=== PATIENT | female | born 1950 | race Caucasian/White ===

== ENCOUNTER 2023-01-20 07:41 | Outpatient (AMB) | payer OTHER, MEDICAID, SELFPAY ==
--- NOTE | 2023-01-20 07:47 | MHC.OFFVIS ---
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 Accompanied by her lupe Anjelica Preschool Program Director Required: Yes Preschool Program Director Name: Natasha Allergies cephalexin Allergy (Unknown, Verified 01/20/23 07:50) Rash nitrofurantoin Allergy (Unknown, Verified 01/20/23 07:50) Rash penicillin V Allergy (Unknown, Verified 01/20/23 07:50) Rash vancomycin Allergy (Unknown, Verified 01/20/23 07:50) Rash IVP dye(iodine containing) Allergy (Unknown, Uncoded 01/20/23 07:50) Rash HPI HPI Comments History of Present Illness Details 72 y/o female patient presents with her daughter for new in-person visit for laryngeal tremor. Pt's daughter helped for hx and interpretation. Pt's daughter noticed that patient's voice changes about an year ago. Her voice has been hoarse and having cough when she talks. Denies neck or chest trauma, or viral illness. Pt reports she has hx of thyroid nodule. She was evaluted by ENT and referred to r/o neurological condition. Denies difficulty swallowing, She can cough when she talks long. Pt was recommended to use flonase for post nasal drip. Pt also referred to speech therapy. Denies family hx of tremor. Denies slowing, or stiffness. Had knee pain but no gait changes. She sleeps ok, no REM behavior. Jose Luis memory changes. Denies constipation. [facility] Surgical History (Updated 01/20/23 @ 07:53 by Harini Burris CMA) S/P emergency Family History (Updated 01/20/23 @ 07:55 by Harini Burris CMA) Family/Other Cancer Family/Other Asthma Diabetes Heart murmur Social History (Updated 01/20/23 @ 07:55 by Harini Burris CMA) Alcohol intake: never Patient Tobacco Use Status: Never used Tobacco Review of Systems Const All systems reviewed & are unremarkable except as noted in HPI and below Physical Exam Vital Signs: Last Vital Signs Pulse 62 01/20/23 07:55 BP 138/68 01/20/23 07:55 Pulse Ox 98 01/20/23 07:55 Oxygen Delivery Method Room Air 01/20/23 07:55 BMI result Body Mass Index 33.5 Const Other: Mild jaw tremor. No tongue tremor General: cooperative and healthy appearing Nutritional Appearance: obese Orientation/consciousness: patient oriented x3 Limitations: language barrier Neck Neck: Yes full ROM and Yes supple Resp Effort & Inspection: normal respiratory effort and able to speak in complete sentences Neuro General: patient oriented x3 Cranial nerves: Yes CN's II-XII intact bilaterally Motor exam (neuro): 5/5 motor strength present throughout, Pronator motor function not present and no tremor noted Deep tendon reflexes (DTR's): Rt Biceps (C5, C6): 2+ and Left biceps reflex intensity grade: 2+ Psych Appearance: grossly normal Mental Status: mental status grossly normal Speech and movement: Other speech and movement exam findings present (Psych) (voice tremor) Attitude: cooperative Assessment & Plan Assessment & Plan (1) Voice hoarseness: Code(s): R49.0 - Dysphonia (2) Voice tremor: Code(s): R49.8 - Other voice and resonance disorders Plan Advised patient to try propranolol ER 60 mg qHS. Monitor her blood pressure. Follow up with speech therapy. Medications: New propranolol ER 60 mg PO BEDTIME 30 caps 1RF 30 days Coding Level of Care Code New Pt Level 4 (99040) Diagnoses Voice hoarseness R49.0 Voice tremor R49.8
[2023-01-20 07:55] VITALS: BP 138/68; PULSE 62; O2SAT 98; BMI 33.5
== END 2023-01-20 08:29 | disposition home or self-care (01) ==
PROVIDERS: PCP Internal Medicine; Visit Provider Nurse Practitioner Family
DX: R49.0 Dysphonia (principal); R49.8 Other voice and resonance disorders
CPT/HCPCS: 99204

== ENCOUNTER → 2023-01-20 07:41 | Outpatient (BNVA) | payer OTHER, MEDICAID, SELFPAY | PROVIDERS: PCP Internal Medicine; Visit Provider Nurse Practitioner Family ==

== ENCOUNTER 2023-06-04 08:24 | Outpatient (AMB) | payer OTHER, MEDICAID, SELFPAY ==
--- NOTE | 2023-06-04 08:28 | MHC.OFFVIS ---
Vital Signs 06/04/23 08:37 Height 5 ft 3 in Weight 186 lb 8 oz BMI 33.0 BP 120/72 Blood Pressure Location Rt brachial Position Sitting Pulse 60 Pulse Source Pulse Oximeter Pulse Oximetry (%) 98 Oxygen Delivery Method Room Air Intake Visit Reasons: 3 mo f/u - Laryngeal & Palatal Tremors Intake Note: Patient presents for 3 month F/U. While speaking her voice becomes hoarse and coughs a lot. Voice trembles a lot and she looses it at times. Allergies cephalexin Allergy (Unknown, Verified 06/04/23 08:37) Rash nitrofurantoin Allergy (Unknown, Verified 06/04/23 08:37) Rash penicillin V Allergy (Unknown, Verified 06/04/23 08:37) Rash vancomycin Allergy (Unknown, Verified 06/04/23 08:37) Rash IVP dye(iodine containing) Allergy (Unknown, Uncoded 01/20/23 07:50) Rash HPI Comments Details: 72 y/o female patient presents with her daughter for follow up of laryngeal tremor. Pt's daughter helped for hx and interpretation. Pt tried propranolol 60 ER daily, but it caused her GI upset, nausea, vomiting and diarrhea. Propranolol dosage changed to 10 mg BID and she tried for a month. She is not sure it helps to reduce the voice tremor. She did not get refill and stopped it. Pt reports she has hx of thyroid nodule. She was evaluted by ENT and referred to r/o neurological condition. Denies difficulty swallowing, She can cough when she talks long. Pt was recommended to use flonase for post nasal drip. Pt also referred to speech therapy. Denies family hx of tremor. Denies slowing, or stiffness. Had knee pain but no gait changes. She sleeps ok, no REM behavior. Jose Luis memory changes. Denies constipation. [facility] Surgical History S/P emergency Family History Family/Other Cancer Family/Other Asthma Diabetes Heart murmur Social History Alcohol intake: never Patient Tobacco Use Status: Never used Tobacco Review of Systems Const All systems reviewed & are unremarkable except as noted in HPI and below Physical Exam Vital Signs: Last Vital Signs Pulse 60 06/04/23 08:37 BP 120/72 06/04/23 08:37 Pulse Ox 98 06/04/23 08:37 Oxygen Delivery Method Room Air 06/04/23 08:37 BMI result Body Mass Index 33.0 Const Other: Mild jaw tremor. No tongue tremor General: cooperative and healthy appearing Nutritional Appearance: obese Orientation/consciousness: patient oriented x3 Limitations: language barrier Neck Neck: Yes full ROM and Yes supple Resp Effort & Inspection: normal respiratory effort and able to speak in complete sentences Neuro General: patient oriented x3 Cranial nerves: Yes CN's II-XII intact bilaterally Motor exam (neuro): 5/5 motor strength present throughout, Pronator motor function not present and no tremor noted Deep tendon reflexes (DTR's): Rt Biceps (C5, C6): 2+ and Left biceps reflex intensity grade: 2+ Psych Appearance: grossly normal Mental Status: mental status grossly normal Speech and movement: Other speech and movement exam findings present (Psych) (voice tremor) Attitude: cooperative Assessment & Plan Assessment & Plan (1) Voice hoarseness: Code(s): R49.0 - Dysphonia Category: Medical (2) Voice tremor: Code(s): R49.8 - Other voice and resonance disorders Category: Medical Plan Advised patient to resume propranolol 10 mg BID. Monitor her blood pressure. Follow up with speech therapy. Medications: Refilled propranolol 10 mg PO BID 180 tabs 1RF 90 days Coding Level of Care Code Est Pt Level 3 (37296) Diagnoses Voice hoarseness R49.0 Voice tremor R49.8
[2023-06-04 08:37] VITALS: BP 120/72; PULSE 60; O2SAT 98; BMI 33.0
== END 2023-06-04 08:56 | disposition home or self-care (01) ==
PROVIDERS: PCP Internal Medicine; Visit Provider Nurse Practitioner Family
DX: R49.0 Dysphonia (principal); R49.8 Other voice and resonance disorders
CPT/HCPCS: 99213

== ENCOUNTER → 2023-06-04 08:24 | Outpatient (BNVA) | payer OTHER, MEDICAID, SELFPAY | PROVIDERS: PCP Internal Medicine; Visit Provider Nurse Practitioner Family ==

== ENCOUNTER 2023-11-07 10:09 | Outpatient (AMB) | payer OTHER, SELFPAY ==
--- NOTE | 2023-11-07 10:16 | MHC.OFFVIS ---
Vital Signs 11/07/23 10:17 Height 5 ft 3 in Weight 186 lb BMI 32.9 BP 128/74 Blood Pressure Location Lt brachial Position Sitting Respiration 16 Pulse 57 Pulse Source Pulse Oximeter Pulse Oximetry (%) 97 Oxygen Delivery Method Room Air Intake Visit Reasons: Follow up Laryngeal/Palatal Tremors Intake Note: Pt presents for a 5 month follow up for laryngeal tremors. Pt reports she went to initial visit for speech therapy and never went back. Gear Setter Required: No Allergies cephalexin Allergy (Unknown, Verified 11/07/23 10:17) Rash nitrofurantoin Allergy (Unknown, Verified 11/07/23 10:17) Rash penicillin V Allergy (Unknown, Verified 11/07/23 10:17) Rash vancomycin Allergy (Unknown, Verified 11/07/23 10:17) Rash IVP dye(iodine containing) Allergy (Unknown, Uncoded 11/07/23 10:17) Rash Medication List - Last Reconciled 11/07/23 by Tiffani Camargo MD amlodipine 5 mg PO DAILY cholecalciferol (vitamin D3) 50 mcg PO DAILY diclofenac sodium 1% topical fluticasone propionate 50 mcg/actuation 1 spray intranasal DAILY ketotifen fumarate 0.025%(0.035%) 1 drp ophthalmic (eye) BID levothyroxine 100 mcg PO DAILY pravastatin 40 mg PO BEDTIME propranolol 10 mg PO BID 90 days HPI Comments Details: 72 y/o female patient presents with her daughter for follow up of laryngeal tremor. Pt's daughter helped for hx and interpretation.She did not notice any improvement with propranolol 10mg bid she is fine talking but when she sings - she loses her voice like dysphonia. she feels like her vocal cords tightens up. she also has snoring and frequent arousals at night Pt tried propranolol 60 ER daily, but it caused her GI upset, nausea, vomiting and diarrhea. . Pt reports she has hx of thyroid nodule. She was evaluated by ENT and referred to r/o neurological condition. Denies difficulty swallowing, She can cough when she talks long. Pt was recommended to use flonase for post nasal drip. Pt also referred to speech therapy. Denies family hx of tremor. Denies slowing, or stiffness. Had knee pain but no gait changes. She sleeps ok, no REM behavior. Jose Luis memory changes. Denies constipation. [facility] Medical History (Updated 11/07/23 @ 11:00 by Tiffani Camargo MD) Hypersomnia Snoring Dysphonia, spasmodic Surgical History S/P emergency Family History Family/Other Cancer Family/Other Asthma Diabetes Heart murmur Social History Alcohol intake: never Patient Tobacco Use Status: Never used Tobacco Physical Exam Vital Signs: Last Vital Signs Pulse 57 11/07/23 10:17 Resp 16 11/07/23 10:17 BP 128/74 11/07/23 10:17 Pulse Ox 97 11/07/23 10:17 Oxygen Delivery Method Room Air 11/07/23 10:17 BMI result Body Mass Index 32.9 Const Other: Mild jaw tremor. No tongue tremor General: cooperative and healthy appearing Nutritional Appearance: obese Orientation/consciousness: patient oriented x3 Limitations: language barrier Neck Neck: Yes full ROM and Yes supple Resp Effort & Inspection: normal respiratory effort and able to speak in complete sentences Neuro Other: spasmodic dysphonia General: patient oriented x3 Cranial nerves: Yes CN's II-XII intact bilaterally Motor exam (neuro): 5/5 motor strength present throughout, Pronator motor function not present and no tremor noted Deep tendon reflexes (DTR's): Rt Biceps (C5, C6): 2+ and Left biceps reflex intensity grade: 2+ Psych Appearance: grossly normal Mental Status: mental status grossly normal Speech and movement: Other speech and movement exam findings present (Psych) (voice tremor) Attitude: cooperative Assessment & Plan Assessment & Plan (1) Voice hoarseness: Code(s): R49.0 - Dysphonia Category: Medical (2) Voice tremor: Code(s): R49.8 - Other voice and resonance disorders Category: Medical (3) Dysphonia, 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 I will trial her on baclofen 5 mg qhs Home sleep test Monitor her blood pressure. Follow up with speech therapy. Orders: Orders RT home sleep study Today G47.10 - Hypersomnia, unspecified, R06.83 - Snoring Medications: New baclofen 5 mg PO BEDTIME 30 tabs 6RF Coding Level of Care Code Est Pt Level 4 (54217) Complex EM visit Add On G2211 Diagnoses Voice hoarseness R49.0 Voice tremor R49.8 Dysphonia, spasmodic J38.3 Snoring R06.83 Hypersomnia G47.10
[2023-11-07 10:17] VITALS: BP 128/74; PULSE 57; RESP 16; O2SAT 97; BMI 32.9
== END 2023-11-07 11:05 | disposition home or self-care (01) ==
PROVIDERS: PCP Internal Medicine; Visit Provider Psychiatry & Neurology Neurology
DX: R49.0 Dysphonia (principal); R49.8 Other voice and resonance disorders; J38.3 Other diseases of vocal cords; R06.83 Snoring; G47.10 Hypersomnia, unspecified
CPT/HCPCS: 99214

== ENCOUNTER → 2023-11-07 10:09 | Outpatient (BNVA) | payer MEDICAID, SELFPAY | PROVIDERS: PCP Internal Medicine; Visit Provider Psychiatry & Neurology Neurology | DX: R49.0 Dysphonia (principal); R49.8 Other voice and resonance disorders; J38.3 Other diseases of vocal cords; R06.83 Snoring; G47.10 Hypersomnia, unspecified | CPT/HCPCS: 99212 ==

== ENCOUNTER → 2023-12-23 13:25 | Outpatient (REF) | payer OTHER, SELFPAY | LOC: HO.SL 13:25 | PROVIDERS: PCP Internal Medicine; Visit Provider Psychiatry & Neurology Neurology | DX: G47.10 Hypersomnia, unspecified (principal); R06.83 Snoring | CPT/HCPCS: 95806 ==

== ENCOUNTER → 2023-12-23 13:40 | Outpatient (BNV) | payer OTHER, SELFPAY | PROVIDERS: PCP Internal Medicine; Visit Provider Psychiatry & Neurology Neurology | DX: R06.83 Snoring (principal); G47.10 Hypersomnia, unspecified | CPT/HCPCS: 95806 ==

== ENCOUNTER 2024-05-24 07:26 | Outpatient (AMB) | payer MEDICAID, SELFPAY ==
--- NOTE | 2024-05-24 07:33 | MHC.OFFVIS ---
Vital Signs 05/24/24 07:34 Height 5 ft 3 in Weight 191 lb BMI 33.8 Pulse 60 Pulse Source Pulse Oximeter Pulse Oximetry (%) 99 Oxygen Delivery Method Room Air Intake Visit Reasons: 6mo F/U Intake Note: Patient following up for sleep study done 01/05/24 City Solicitor Required: Yes City Solicitor Services: City Solicitor Offered & Declined City Solicitor Name: Nayeli (Daughter ) Allergies cephalexin Allergy (Unknown, Verified 05/24/24 07:36) Rash nitrofurantoin Allergy (Unknown, Verified 05/24/24 07:36) Rash penicillin V Allergy (Unknown, Verified 05/24/24 07:36) Rash vancomycin Allergy (Unknown, Verified 05/24/24 07:36) Rash IVP dye(iodine containing) Allergy (Unknown, Uncoded 05/24/24 07:36) Rash Medication List - Last Reconciled 05/24/24 by Tiffani Camargo MD amlodipine 5 mg PO DAILY baclofen 5 mg PO BEDTIME cholecalciferol (vitamin D3) 50 mcg PO DAILY diclofenac sodium 1% topical fluticasone propionate 50 mcg/actuation 1 spray intranasal DAILY ketotifen fumarate 0.025%(0.035%) 1 drp ophthalmic (eye) BID levothyroxine 100 mcg PO DAILY pravastatin 40 mg PO BEDTIME propranolol 10 mg PO BID HPI Comments Details: 72 y/o female patient presents with her daughter for follow up of laryngeal tremor. Home sleep test was normal Pt's daughter helped for hx and interpretation.She did not notice any improvement with propranolol 10mg bid she is fine talking but when she sings - she loses her voice like dysphonia. she feels like her vocal cords tightens up. she also has snoring and frequent arousals at night Pt tried propranolol 60 ER daily, but it caused her GI upset, nausea, vomiting and diarrhea. . Pt reports she has hx of thyroid nodule. She was evaluated by ENT and referred to r/o neurological condition. Denies difficulty swallowing, She can cough when she talks long. Pt was recommended to use flonase for post nasal drip. Pt also referred to speech therapy. Denies family hx of tremor. Denies slowing, or stiffness. Had knee pain but no gait changes. She sleeps ok, no REM behavior. Joes Luis memory changes. Denies constipation. [facility] Medical History Hypersomnia Snoring Dysphonia, spasmodic Surgical History S/P emergency Family History Family/Other Cancer Family/Other Asthma Diabetes Heart murmur Social History Alcohol intake: never Patient Tobacco Use Status: Never used Tobacco Physical Exam Vital Signs: Last Vital Signs Pulse 60 05/24/24 07:34 Pulse Ox 99 05/24/24 07:34 Oxygen Delivery Method Room Air 05/24/24 07:34 BMI result Body Mass Index 33.8 Const Other: Mild jaw tremor. No tongue tremor General: cooperative and healthy appearing Nutritional Appearance: obese Orientation/consciousness: patient oriented x3 Limitations: language barrier Neck Neck: Yes full ROM and Yes supple Resp Effort & Inspection: normal respiratory effort and able to speak in complete sentences Neuro Other: spasmodic dysphonia General: patient oriented x3 Cranial nerves: Yes CN's II-XII intact bilaterally Motor exam (neuro): 5/5 motor strength present throughout, Pronator motor function not present and no tremor noted Psych Appearance: grossly normal Mental Status: mental status grossly normal Speech and movement: Other speech and movement exam findings present (Psych) (voice tremor) Attitude: cooperative Assessment & Plan Assessment & Plan (1) Voice hoarseness: Code(s): R49.0 - Dysphonia Category: Medical (2) Voice tremor: Code(s): R49.8 - Other voice and resonance disorders Category: Medical (3) Dysphonia, 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 Home sleep test- reviewed will refer to [facility] for evaluation and treatment with botox Monitor her blood pressure. Follow up with speech therapy. Orders: Referrals Ear/Nose/Throat Referral J38.3 - Other diseases of vocal cords, R49.0 - Dysphonia, R49.8 - Other voice and resonance disorders Medications: Discontinued baclofen Discontinued Reason: Patient no longer taking 5 mg PO BEDTIME 30 tabs 6RF Coding Level of Care Code Est Pt Level 4 (01127) Complex EM visit Add On G2211 Diagnoses Voice hoarseness R49.0 Voice tremor R49.8 Dysphonia, spasmodic J38.3
[2024-05-24 07:34] VITALS: PULSE 60; O2SAT 99; BMI 33.8
== END 2024-05-24 08:08 | disposition home or self-care (01) ==
LOC: HO.HSMS 07:27
PROVIDERS: PCP Internal Medicine; Visit Provider Psychiatry & Neurology Neurology
DX: R49.0 Dysphonia (principal); R49.8 Other voice and resonance disorders; J38.3 Other diseases of vocal cords
CPT/HCPCS: 99214

== ENCOUNTER → 2024-05-24 07:26 | Outpatient (BNVA) | payer OTHER, SELFPAY | PROVIDERS: PCP Internal Medicine; Visit Provider Psychiatry & Neurology Neurology | DX: R49.0 Dysphonia (principal); R49.8 Other voice and resonance disorders; J38.3 Other diseases of vocal cords | CPT/HCPCS: 99212 ==

== ENCOUNTER 2024-11-24 07:14 | Outpatient (AMB) | payer OTHER, SELFPAY ==
--- OUTSIDE RECORDS SUMMARY | 2024-11-23 08:45 | XMS_ITS | Encounter Summary ---
Author Organization [facility] Address [address] [place] [address] Care Team Providers Care Instrument Maintenance Supervisor Name Role Phone Burak Hinojosa MD Primary Care Provider [phone] Reason for Visit * Consultation (Routine) - Authorized Specialty Diagnoses / Procedures Referred By Reji franks Referred To Contact Podiatry / Orthopaedic Surgery Diagnoses Ingrown toenail Nail discoloration Rosales Lopez PA [address] [place] [phone] Phone: tel: fax: Reid Ritter DPM [address] [place] [phone] Phone: tel: fax: Referral ID Status Reason Start Date Expiration Date Visits Requested Visits Authorized [id number] Authorized Specialty Services Required 09/14/2024 09/14/2025 1 1 Encounter Details Date Type Department Care Team ([facility] Contact Info) Description 11/23/2024 8:45 AM EDT Consult Orthopedic Surgery - [place] [address] [phone] Reid Ritter DPM [address] [phone] Ingrowing nail (Primary Dx); Ingrown toenail; Nail discoloration; Dermatophytosis of nail; Pain in toe of right foot; Pain in toe of left foot; Bilateral femoral artery stenosis (CMS/HCC V24) Social History Tobacco Use Types Packs/Day Years Used Date Smoking Tobacco: Never Smokeless Tobacco: Never Alcohol Use Standard Drinks/Week Comments No 0 (1 standard drink = 0.6 oz pur e alcohol) Comments No Sex and Gender Information Value Date Recorded Sex Assigned at Female 06/14/2024 10:13 AM EDT Legal Sex Female 11:45 PM EST Gender Identity Female 06/14/2024 10:13 AM EDT Sexual Orientation Straight 06/14/2024 10 :13 AM EDT documented as of this encounter Functional Status * Are you deaf or do you have serious difficulty hearing? Answer Date of Assessment Author No 08/10/2024 10:30 AM EDT Shakila Alejandre RN * Are you blind or do you have serious difficulty seeing, even when wearing glasses? Answer Date of Assessment Author No 08/10/2024 10:30 AM JIAT Shakila Alejandre RN * Do you have serious difficulty walking or climbing stairs? Answer Date of Assessment Author No 08/10/2024 10:30 AM JIAT Shakila Alejandre RN * Do you have serious difficulty dressing or bathing? Answer Date of Assessment Author No 08/10/2024 10:30 AM EDT Shakila Alejandre RN * Because of a physical, mental, or emotional condition, do you have serious difficulty doing errandsalone such as visiting the doctor? Answer Date of Assessment Author No 08/10/2024 10:30 AM Shakila Tillman RN documented as of this encounter Mental Status * Because of a physical, mental, or emotional condition, do you have serious difficulty concentrating, remembering, or making decisions? (5 years old or older) Answer Entry Date Author No 08/10/2024 10:30 AM Shakila Tillman RN documented in this encounter Ordered Prescriptions Prescription Sig Dispense Quantity Refills Last Filled Start Date End Date ketoconazole (NIZORAL) 2 % cream Apply topically 1 (one) time each day. 30 g 2 11/23/2024 documented in this encounter Progress Notes * Reid Ritter DPM - 11/23/2024 8:45 AM EDT Last PCP visit:Referring MD: Rosales Lopez,*09/14/2024 IDENTIFIER: Pat Padilla is a 73 y.o. year old female who presents for consultation. CC: Foot pain HPI: Pat Padilla is a 73 y.o. year old female presents complaining o pain discomfort of her feet she reports she has hammertoes to curl up and bother her sometimes she is she has very long and painful thickened nails states that they also bother her as well states that affects where she walks she has tried different topical antifungals minimal to no improvement referred today for evaluation of her feet ingrown nails of her skin been going to her skin ROS: GENERAL: Pt denies nausea, fever, vomiting, chills, or shortness of breath. Pt in NAD. CARDIOLOGY: pt denies chest pain, palpitations LUNGS: pt denies shortness of breath MUSCULOSKELETAL: See HPI, otherwise no joint pain or swelling, back pain, or muscle pain. 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), ankle and foot DJD of shoulder HTN (hypertension) Hyperlipemia Hypothyroidism Left breast mass Lichen sclerosus et atrophicus of the vulva Osteopenia Osteoporosis Primary hyperparathyroidism (CMS/HCC V24) Primary osteoarthritis involving multiple joints Sebaceous cyst Spondylosis of lumbar region without myelopathy or radiculopathy Tendinitis of right shoulder Venous insufficiency Vitamin D deficiency Prediabetes SOCIAL HISTORY: Social History Tobacco Use Smoking status: Never Smokeless tobacco: Never Substance Use Topics Alcohol use: No ACTIVE MEDICATIONS: Outpatient Medications Marked as Taking for the 11/23/24 encounter (Appointment) with Reid Ritter DPM Medication Sig Dispense Refill amLODIPine (NORVASC) 5 mg tablet TAKE 1 TABLET BY MOUTH 1 TIME EACH DAY. 90 tablet 1 baclofen (LIORESAL) 10 mg tablet Take 1 Tablet by mouth 3 times daily. cholecalciferol (VITAMIN D-3) 50 mcg (2,000 unit) capsule Take 1 capsule (2,000 Units total) by mouth 1 (one) time each day. 90 capsule 1 diclofenac (VOLTAREN) 1 % topical gel Apply 4 g topically 4 times daily. levothyroxine (SYNTHROID, LEVOTHROID) 100 mcg tablet TAKE 1 TABLET BY MOUTH 1 TIME EACH DAY. 90 tablet 1 loratadine (CLARITIN) 10 mg tablet TAKE 1 TABLET BY MOUTH 1 TIME EACH DAY. 90 tablet 1 metroNIDAZOLE (METROGEL) 1 % gel mometasone (ELOCON) 0.1 % ointment APPLY A THIN LAYER TO THE AFFECTED AREA MWF 90 g 1 naproxen (NAPROSYN) 500 mg tablet TAKE 1 TABLET BY MOUTH 2 TIMES DAILY (WITH MEALS) FOR 360 DAYS. 180 tablet 1 pravastatin (PRAVACHOL) 40 mg tablet TAKE 1 TABLET (40 MG TOTAL) BY MOUTH AT BEDTIME. AT BEDTIME. 90 tablet 1 ALLERGIES: Allergies Allergen Reactions Cephalosporins Iodinated Contrast Media Other Reaction(s): Rash/Dermatitis Nitrofurantoin Other abd pain, throat pain Penicillins Other Reaction(s): Rash/Dermatitis Vancomycin PHYSICAL EXAM: Visit Vitals OB Status Hysterectomy Smoking Status Never PODIATRIC EXAMINATION: GENERAL: Patient appears well nourished, with NAD. VASCULAR: Dorsalis pedis pulses are 2/4 bilaterally and Posterior tibial pulses are 2/4 bilaterally. Capillary filling time within normal limits the digits. No pallor on elevation or rubor on dependency. No varicosities. Denies rest pain or claudication pain. NEUROLOGICAL: Sharp/dull sensation intact, protective sensation intact 10/10 with Ipswitch touch test bilaterally, vibratory sensation intact to the tibial tuberosity. ORTHOPEDIC: Good muscle strength 5/5 of all flexors and extensors. Dorsi flexion of ankle ,10 degrees, plantar flexion WNL. No muscle atrophy. DERMATOLOGICAL:.Curvature both great toenails ingrowth medial lateral nail fold Toenails: Left Toenail(s) 1-5: subungual debris, discoloration, hypertrophic, elongation, mycotic appearance, onychomycosis, pain and thickening. Right Toenail(s) 1-5: subungual debris, discoloration, hypertrophic, elongation, mycotic appearance, onychomycosis, pain and thickening. Annular scaling bilateral feet moccasin distribution Skin thinning texture shiny appearance diffuse hyperpigmentation bilaterally pedal hair decreased BIOMECHANICS: Ankle ROM WNL, STJ ROM wnl, MTJ ROM wnl, 1st MPJ ROM wnl. IMAGING: IMPRESSION: 1. Dermatophytosis of nail 2. Ingrown toenail 3. Nail discoloration 4. Pain in toe of right foot 5. Pain in toe of left foot PLAN: Pt was seen and examined, history reviewed. Minor surgical procedure of nail removal with matrixectomy was discussed and reviewed versus nail removal discussed with patient risks of nail procedure including scar tissue formation reoccurrence loss of more nail deformity cosmetic changes that are undesirable Econazole prescribed Follow-up in 1 to 3 months Debridement of mycotic toenails 6-10: Verbal informed consent was obtained from the patient. Greater than 6 nails were aseptically debrided in thickness and length with nail nippers Reid Ritter DPM documented in this encounter Plan of Treatment Upcoming Encounters Date Type Department Care Team (Late st Contact Info) Description 01/06/2025 9:30 AM EST Office Visit Adult Medicine [facility] - [address] [phone] Rosales Lopez PA [address] [place] [address] 01/24/2025 9:00 AM EST Office Visit Orthopedic Surgery - [place] [address] [phone] Reid Ritter DPM [address] [phone] 02/04/2025 2:45 PM EST Appointment Bone Density [address] [phone] 02/10/2025 8:00 AM EST Office Visit Endocrinology [address] [phone] Tammie Guthrie PA [address] [place] [address] documented as of this encounter Visit Diagnoses Diagnosis Ingrowing nail- Primary Ingrown toenail Ingrowing nail Nail discoloration Other specified disease of nail Dermatophytosis of nail Pain in toe of right foot Pain in soft tissues of limb Pain in toe of left foot Pain in soft tissues of limb Bilateral femoral artery stenosis (CMS/HCC V24) Stricture of artery documented in this encounter Orders Outpatient Referral Count Last Ordered Date Fir st Ordered Date AMB REFERRAL TO PODIATRY 1 11/23/2024 documented in this encounter Care Teams Instrument Maintenance Supervisor Relationship Specialty Start Date End Date Burak Hinojosa MD [address] [place] [phone] PCP - General Internal Medicine 04/30/24 documented as of this encounter
--- OUTSIDE RECORDS SUMMARY | 2024-11-24 07:16 | XMS_ITS ---
Author Name MS. Zion Parsons APRN Address [address] [place] [id number] Phone [phone] [facility] Care Team Providers Care Machine Shop Lead Man Name Role Phone Filomena Parsons Unavailable [phone] Reason for Referral Not Available Allergies, adverse reactions, alerts Allergen Type Reaction Severity Status Onset Date Penicillins Allergy to substance (disorder) hives Modera te Active N/A History of medication use Medication Class Instructions Start Date End Date Clindamycin 300 mg Cap TAKE 1 CAPSULE BY MOUTH FOUR TIMES DAILY UNTIL FINISHED 2021-08-17 No Data Available Ibuprofen 800 mg Tab TAKE 1 TABLET BY MO UTH EVERY 8 HOURS NEEDED FOR PAIN 2021-08-17 No Data Available Pravastatin Sodium 40 mg Tab TAKE 1 TABL ET BY MOUTH AT BEDTIME 2021-05-21 No Data Available Levothyroxine Sodium 100 MCG Tab TAKE 1 TABLET BY MOUTH DAILY 2021-05-21 No Data Available VITAMIN D3 2000UNIT CAPSULES TAKE 1 CAPS ULE BY MOUTH DAILY 2021-08-20 No Data Available FLOWFLEX COVID-19 AG HOME TEST KIT TEST DIRECTED TODAY 2021-09-10 No Data Available Meloxicam 7.5 mg Tab TAKE 1 TABLET BY MO UTH DAILY 2021-10-24 No Data Available amLODIPine Besylate 5 mg Tab TAKE 1 TABL ET BY MOUTH DAILY 2021-07-20 No Data Available traMADol 50 mg Tab TAKE 1 TABLET BY NEREIDA TH DAILY NEEDED FOR PAIN 2021-12-29 No Data Available Meloxicam 7.5 mg Tab 1 tablet orally daily 2022-01-29 No Data Available Problem List Problem Status Onset Date Resolved Date Synopsis Hypertension Active 2022-01-29 N/A on amlodipin erecommend frequent BP checks and low sodium diet Hyperlipidemia Active 2022-01-29 N/A stable on a statinresponse to treatment evaluated reviewed records and discussed current condition with the patient recommend low fat diet and lifestyle modifications Hypothyroidism Active 2022-01-29 N/A stable on Synthroiddenies any symptoms associated with low thyroid levels follow up with PCP as schedule and as needed Vitamin D deficiency Active 2022-01-29 N/A on s upplementscontinue to take as prescribed Generalized OA Active 2022-01-29 N/A involving multiple jointson meloxicam occasional OTC analgesics Obesity Active 2022-01-29 N/A BMI of 32 asso ciated with HTN and HLD recommend lifestyle modifications Primary hyperparathyroidism Active 2022-01-30 N/A Outside Care ([facility] 01/29/22) notes member does have a diagnosis of Primary hyperparathyroidism (with bone disease) Encounters Encounters Type Facility Date of Service Diagnosis/Co mplaint New patient,40-59min; chronic exacerbation, 2 stable chronic or 1 acute illness add add modifier 95 for video (do not use for phone, instead use 54159-76) [facility] ([place] 01/28/2022 Essential (primary) hypertensionHyperlipidemia, unspecifiedHypothyroidism, unspecifiedVitamin D deficiency, unspecifiedPolyosteoarthritis , unspecifiedObesity, unspecified New patient,40-59min; chronic exacerbation, 2 stable chronic or 1 acute illness add add modifier 95 for video (do not use for phone, instead use 89770-83) [facility] [place] 01/28/2022 New patient,40-59min; chronic exacerbation, 2 stable chronic or 1 acute illness add add modifier 95 for video (do not use for phone, instead use 67843-72) [facility] ([place] 01/28/2022 New patient,40-59min; chronic exacerbation, 2 stable chronic or 1 acute illness add add modifier 95 for video (do not use for phone, instead use 55188-87) [facility] ([place] 01/28/2022 New patient,40-59min; chronic exacerbation, 2 stable chronic or 1 acute illness add add modifier 95 for video (do not use for phone, instead use 20697-00) [facility] ([place] 01/28/2022 New patient,40-59min; chronic exacerbation, 2 stable chronic or 1 acute illness add add modifier 95 for video (do not use for phone, instead use 71857-49) [facility] ([place] 01/28/2022 New patient,40-59min; chronic exacerbation, 2 stable chronic or 1 acute illness add add modifier 95 for video (do not use for phone, instead use 94909-23) [facility] ([place] 01/28/2022 New patient,40-59min; chronic exacerbation, 2 stable chronic or 1 acute illness add add modifier 95 for video (do not use for phone, instead use 99697-80) [facility] ([place] 01/28/2022 New patient,40-59min; chronic exacerbation, 2 stable chronic or 1 acute illness add add modifier 95 for video (do not use for phone, instead use 28487-00) [facility] ([place] 01/28/2022 Vital Signs Date of Collection Vitals 2022-01-28 12:47:57 Height - 160.02 cmWe ight - 83.92 kgBody Mass Index (BMI) - 32.77 kg/m2BP Diastolic - 70.0 mm[Hg]BP Systolic - 136.0 mm[Hg] Social History Social History Social History Observation Description Effec tive Time Current Smoking Status Never smoker 2024-11-02 4 Sex Female History of Procedures Procedures Service Procedure code Service date Servicing provider Phone# New patient,40-59min; chronic exacerbation, 2 stable chronic or 1 acute illness add add modifier 95 for video (do not use for phone, instead use [id number]) [address] 2022-01-28 No Data Available No Data Availa ble Pain Assessment - NO pain present (1126F) 1126F 2022-01-28 No Data Available No Data A vailable Medication List Documented (1159F) 1159F 2022-01-28 No Data Available No Data Mariajose ilable Medication Review by prescribing provider or pharmacist documented (1160F) 1160F 2022-01-28 No Data Available No Data Mariajose ilable Functional Status Assessed (1170F) 1170F 2022-01-28 No Data Available No Data Avail able Advance Care Directive Advance care planning discussion documented in the medical record (1158F) 1158F 2022-01-28 No Data Available No Data Availa ble BMI obtained (3008F) 3008F 2022-01-28 No Data Availab le No Data Available DBP <80 (3078F) 3078F 2022-01-28 No Data Available No Data Available SBP 130-139 (3075F) 3075F 2022-01-28 No Data Availabl e No Data Available Functional Status Functional Category Effective Dates Cognition Status: Oriented to Person, Pl jesus and Time 2022-01-28 ADL Eating: Independent; Amb ulation: Some Help Needed; Dressing: Some Help Needed; Bathing: Some Help Needed; Toileting: Independent 2022-01-28 Mental Status Status Date Cognition Status: Oriented to Person, Pl jesus and Time 2022-01-28 Assessments Date of Service Assessments 2022-01-28 12:47:57 HypertensionHyperlip idemiaHypothyroidismVitamin D deficiencyGeneralized OAObesityPrimary hyperparathyroidism Plan of Care Date of Service Plans 2022-01-28 12:47:57 Pain Assessment - NO pain documented (1126F)Medication Review by prescribing provider or pharmacist documented (1160F)Medication List Documented (1159F)Functional Status Assessed (1170F)Advance Care Directive Advance care planning discussion documented in the medical record (1158F)BMI obtained (3008F)SBP 130-139 (3075F)DBP <80 (3078F)Televideo new patient,40-59min; chronic exacerbation, 2 stable chronic or 1 acute illness add modifier 95Continue to see PCP. Follow-up with [facility] as needed for any acute or disease education needs that may arise.on amlodipinerecommend frequent BP checks and low sodium dietstable on a statinresponse to treatment evaluated reviewed records and discussed current condition with the patient recommend low fat diet and lifestyle modificationsstable on Synthroiddenies any symptoms associated with low thyroid levels follow up with PCP as schedule and as neededon supplementscontinue to take as prescribedinvolving multiple jointson meloxicam occasional OTC analgesicsBMI of 32 associated with HTN and HLD [facility] notes member does have a diagnosis of Primary hyperparathyroidism (with bone disease) Goals Date Goal 2022-01-28 Remember to take med ications as prescribed 2022-01-28 Call me if you have any questions or concerns Health Concerns Date Concern 2022-01-28 Visit completed by a udio and video using [facility] Tablet. Introductory visit with [facility] to establish care. Today, patient has chief complaint of: establishing care.Reviewed Allergies, Medications, Active Medical conditions, past medical/surgical history, Social history. 2022-01-28 Most recent hospital stay(s) or ER visit(s) and precipitating factors: had a visit to the ER three weeks ago 2022-01-28 Advance care planfior bright discussion. Conversation today with: Advance Care PlanDo you have an Advance Care Plan? YesDo you have a Durable Power of Hand Molder for Healthcare, or Healthcare Proxy? YesIf so, Who? Nayeli ScotturrinoCode Status: Resuscitate /CPR/ Full codeOther Details of discussion (Who was present, patients description of wishes/goals): 2022-01-28 Open HEDIS Measure rebecca marte:
--- OUTSIDE RECORDS SUMMARY | 2024-11-24 07:17 | XMS_ITS | Clinical Summary ---
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 Active diclofenac (VOLTAREN) 1 % topical gel Apply 4 g topically 4 times daily. 05/19/19 24 Active metroNIDAZOLE (METROGEL) 1 % gel 11/19/19 24 Active mometasone (ELOCON) 0.1 % ointment APPLY A THIN LAYER TO THE AFFECTED AREA MWF 90 g 1 05/29/19 25 Active cholecalcifero l (VITAMIN D-3) 50 mcg (2,000 unit) capsule Take 1 capsule (2,000 Units total) by mouth 1 (one) time each day. 90 capsule 1 07/07/19 25 Active loratadine (CLARITIN) 10 mg tablet TAKE 1 TABLET BY MOUTH 1 TIME EACH DAY. 90 tablet 1 07/15/19 25 Active levothyroxine (SYNTHROID, LEVOTHROID) 100 mcg tablet TAKE 1 TABLET BY MOUTH 1 TIME EACH DAY. 90 tablet 1 08/04/19 25 Active naproxen (NAPROSYN) 500 mg tablet TAKE 1 TABLET BY MOUTH 2 TIMES DAILY (WITH MEALS) FOR 360 DAYS. 180 tablet 1 08/17/19 25 Active pravastatin (PRAVACHOL) 40 mg tablet TAKE 1 TABLET (40 MG TOTAL) BY MOUTH AT BEDTIME. AT BEDTIME. 90 tablet 1 11/04/19 25 Active amLODIPine (NORVASC) 5 mg tablet TAKE 1 TABLET BY MOUTH 1 TIME EACH DAY. 90 tablet 1 11/04/19 25 Active ketoconazole (NIZORAL) 2 % cream Apply topically 1 (one) time each day. 30 g 2 11/24/19 25 Active pravastatin (PRAVACHOL) 40 mg tablet Take 1 tablet (40 mg total) by mouth at bedtime. at bedtime. 90 tablet 1 05/29/19 25 025 Discontinued amLODIPine (NORVASC) 5 mg tablet Take 1 tablet (5 mg total) by mouth 1 (one) time each day. 90 tablet 1 05/29/19 25 025 Discontinued Active Problems Problem Noted Date Diagnosed Date Prediabetes 07/19/2024 DJD (degenerative joint disease), ankle and foot 01/27/2024 Overview (01/27/2024): Mild, saw Dr. Franks at [facility] HTN (hypertension) 01/27/2024 Hyperlipemia 01/27/2024 Hypothyroidism 01/27/2024 Osteoporosis 01/27/2024 Overview (01/27/2024): 2010 BMD normal. Hold Actonel x 1 year. Repeat BMD - should include forearm (more commonly affected by primary hyperparathyroidism) Vitamin D deficiency 01/27/2024 Osteopenia 04/20/2021 Venous insufficiency 02/25/2020 Overview (01/27/2024): Left (test 02/2020) Left breast mass 10/30/2018 Overview (01/27/2024): Core bx [facility] Spondylosis of lumbar region without myelopathy or radiculopathy 03/25/2017 Sebaceous cyst 11/28/2016 Primary osteoarthritis involving multiple joints 10/24/2016 Lichen sclerosus et atrophicus of the vulva 05/03 Assessment & Plan (05/03/2024 8:58 AM EST): Reviewed findings with patient. Well controlled. Continue MWF steroid, but switched from clobetasol to mometasone due to insurance. If not covered or if worsens due to decreased potency, can increase frequency or consider trying more potent steroid like Lidex MWF. Favor ointment over cream. I reviewed the importance of regular maintenance topical steroid and the importance of regular follow up. I reviewed areas of application and amount of medication to use. Assessment & Plan (02/03/2024 10:34 AM EST): Reviewed findings with patient. I counseled her that findings are consistent with lichen sclerosus. I explained this is likely an autoimmune inflammatory condition and that the mainstay of therapy is use of maintenance topical steroid. I explained that women with lichen sclerosus are at about a 5 fold increased risk of SCC over the general population. Explained that the purpose of the steroid is to prevent symptoms, further scarring, and squamous cell cancer of the vulva. I also explained the importance of regular follow up to ensure she has no evidence of precancerous or cancerous changes and that she is not having side effects from her medication. I reviewed areas of application and amount of medication to use. She voiced understanding. She was given [facility] information re: LS today and will call with any questions. She will cut back on clobetasol to MWF. Abnormal mammogram 10/12/2015 DJD (degenerative joint disease) of knee 014 Overview (01/27/2024): Xray 2011 left knee mild DJD DJD of shoulder 05/03/2013 Overview (01/27/2024): Right shoulder xray/MRI 2010, prob partial tear Abdominal adhesions 06/27/2011 Overview (01/27/2024): CT at [facility] 06/12/11 - Questionable anterior left pelvic mesenteric/small bowel mass, without bowel obstruction. Colonoscopy negative Surg - adhesions Primary hyperparathyroidism ([facility] V24) 2010 Overview (01/27/2024): Parathyroid adenoma - sees Dr. Aromnd Brenner at [facility] (Endo). Has seen Endo Surg, surgery not recommended at this time Tendinitis of right shoulder 08/08/2010 Encounters Date Type Department Care Team Description 11/23/2024 8:45 AM EDT Consult Orthopedic Surgery - [address] [phone] Reid Ritter, DPM Ingrowing nail (Primary Dx); Ingrown toenail; Nail discoloration; Dermatophytosis of nail; Pain in toe of right foot; Pain in toe of left foot; Bilateral femoral artery stenosis ([facility] V24) 11/15/2024 9:23 AM EDT - 11/15/2024 11:59 PM EDT Hospital [facility] [address] [phone] Encounter for screening mammogram for breast cancer Discharge Disposition: Home or Self Care 10/18/2024 9:00 AM EDT Office Visit Endocrinology [address] [phone] Dylon Martini MD Osteopenia, unspecified location (Primary Dx); Hyperparathyroidism ([facility] V24) 09/14/2024 7:30 AM EDT Office Visit Adult Medicine [address] [phone] Rosales Lopez PA Ingrown toenail (Primary Dx); Nail discoloration; Hypertension, unspecified type; Prediabetes 09/13/2024 Telephone Adult Medicine [address] [phone] Burak Hinojosa MD 09/07/2024 11:12 AM EDT - 09/07/2024 2:45 PM EDT Emergency [facility] Emergency [address] [place] [phone] Acute pyelonephritis (Primary Dx) Discharge Disposition: Home or Self Care from Last 3 Months Immunizations Name Administration Dates Next Due Influenza trivalent, 0.5mL ( Fluad) 65yo and older 11/07/2022,12/25/2021,12/01/2020,12/10,12/10/2017,12/26/2016 Influenza trivalent, 0.5mL, preservative free (Fluarix; FluLaval; Fluzone) ages 6mo and older (Afluria) 3 years and older 12/27/2019,02/13/2016,12/21/2013,11/05,11/18/2011,11/26/2010 Pfizer SARS-CoV-2 COVID-19, mRNA, LNP-S, preservative free 05/01/2020,04/09/2020 Pneumococcal conjugate 13 va lent (Prevnar 13, PCV13) 2mo and older 04/25/2015 Pneumococcal polysaccharide 23 valent (Pneumovax 23) 2yo and older 07/15/2017 Tdap Tetanus diptheria acell ular pertussis (Boostrix; Adacel) 7yo and older 08/29/2020,01/29/2010 Zoster Live 09/24/2011 Surgical History Surgery Date Site/Laterality Comments CHOLECYSTECTOMY 2001 PROCEDURE: HISTORICAL CHOLECYSTECTOMY; COMMENT: complicated by hepatic hematoma, [facility] OTHER SURGICAL HISTORY 2010 PROCEDURE: HISTORICAL D&C COLONOSCOPY 2003 [place] PROCEDURE: HISTORICAL COLONOSCOPY; COMMENT: No polyps COLONOSCOPY 08/09/11 PROCEDURE: NC COLONOSCOPY STOMA DX INCLUDING COLLJ SPEC SPX; COMMENT: tics; repeat in ten yrs SECTION PROCEDURE: HISTORICAL DELIVERY HYSTERECTOMY 08/08/15 PROCEDURE: HISTORICAL TOTAL HYSTERECTOMY WITH BSO; COMMENT: endometrial hyperplasia Medical History Medical History Date Comments Osteoporosis DX:Osteoporosis Vitamin D deficiency DX:Vitamin D deficiency Secondary hyperparathyroidis m, non-renal (CMS/HCC V24) DX:Secondary hyperparathyroi dism, non-renal (HCC) Hypothyroidism DX:Hypothyroidis m DJD (degenerative joint dise ase), ankle and foot DX:DJD (degenerative joint d isease), ankle and foot Thigh pain, musculoskeletal 10/08/2013 DX:T high pain, musculoskeletal Tendinitis of right shoulder 08/08/2010 DX: Tendinitis of right shoulder Primary hyperparathyroidism (CMS/HCC V24) 11/26/2010 DX:Primary hyperparathyroidi sm (HCC); COMMENT: Parathyroid adenoma - sees Dr. Armond Brenner at [facility] (Endo). Has seen Endo Surg, surgery not recommended at this time Hyperlipemia DX:Hyperlipemia HTN (hypertension) DX:HTN (hyper tension) Endometrial hyperplasia, simple 07/04/2010 DX:Endometrial hyperplasia, simple; COMMENT: Used norethindrone and then D&C 09/19/10. ; No hyperplasia on path. Repeat endometrial biopsy in a year. DJD of shoulder 05/03/2013 DX:DJD of should er; COMMENT: Right shoulder xray/MRI 2010, partial tear DJD (degenerative joint dise ase) of knee 05/03/2013 DX:DJD (degenerative joint d isease) of knee; COMMENT: Xray 2011 left knee mild DJD Abnormal vaginal bleeding 06/12/2010 DX:Abn ormal vaginal bleeding Abdominal pain, bilateral lo wer quadrant 05/03/2013 DX:Abdominal pain, bilateral lower quadrant Abdominal adhesions 06/27/2011 DX:Abdominal adhesions; COMMENT: CT at [facility] 06/12/11 - Questionable anterior left pelvic mesenteric/small bowel mass, without bowel obstruction. Colonoscopy negative Surg - adhesions Complex endometrial hyperpla juan with atypia 07/04/2010 DX:Complex endometrial hyper plasia with atypia; COMMENT: Simple without atypia 06/2010 EMB. Used norethindrone and then D&C 09/19/10. ; No hyperplasia on path. Repeat endometrial biopsy in a year normal. 2016 Complex with atypia, needs D&C Family History Medical History Relation Name Comments Heart attack Brother 1 Arthritis Brother 2 Colon polyps Daughter 2 daughters; we re advised to rpt in 3 yrs. Prostate cancer Father age 83 Colon cancer Mother age 49 in 1962 Breast cancer Mother's side niece Breast cancer Sister Relation Name Status Comments Brother 1 Brother 2 Daughter Father Mother Mother's side Sister Social History Tobacco Use Types Packs/Day Years Used Date Smoking Tobacco: Never Smokeless Tobacco: Never Tobacco Cessation:Counseling Given: Not Answered Alcohol Use Standard Drinks/Week Comments No 0 (1 standard drink = 0.6 oz pur e alcohol) Comments No Sex and Gender Information Value Date Recorded Sex Assigned at Female 06/14/2024 10:13 AM EDT Legal Sex Female 11:45 PM EST Gender Identity Female 06/14/2024 10:13 AM EDT Sexual Orientation Straight 06/14/2024 10 :13 AM EDT Obstetrics History * This document contains information received from the source organization and may not represent a complete record from that organization. Para Term AB IAB SAB Ectopic Multiple Livin g Live Births 7 5 5 5 6 Date Outcome GA Total Labor Labor/2nd/3rd Weight Sex Type Anes PTL Aracelis A1 A5 Name Clin Term Living Term Living Term Living Term Living Term Living Last Filed Vital Signs Vital Sign Reading Time Taken Comments Blood Pressure 139/82 10/18/2024 9:05 AM EDT Pulse 84 10/18/2024 9:05 AM EDT Temperature 36.1 C (97 F) 09/14/2024 7:26 AM EDT Respiratory Rate 15 10/18/2024 9:05 AM EDT Oxygen Saturation 98% 09/14/2024 7:26 AM EDT Inhaled Oxygen Concentration - - Weight 86.2 kg (190 lb) 11/15/2024 9:39 AM EDT Height 160 cm (5' 3 ) 11/15/2024 9:39 AM EDT Body Mass Index 33.66 11/15/2024 9:39 AM EDT Plan of Treatment Upcoming Encounters Date Type Department Care Team (Late st Contact Info) Description 01/06/2025 9:30 AM EST Office Visit Adult Medicine [address] [phone] Rosales Lopez PA [address] [place] [address] 01/24/2025 9:00 AM EST Office Visit Orthopedic Surgery - [place] [address] [phone] Reid Ritter, DPM [address] [phone] 02/04/2025 2:45 PM EST Appointment Bone Density [address] [phone] 02/10/2025 8:00 AM EST Office Visit Endocrinology - [place] [address], [place] [phone] Tammie Guthrie PA [address] [place] [address] Health Maintenance Due Date Last Done Comments Zoster Vaccines (2 of 3) 11/19/2011 09/24/2011 Falls Risk Assessment 02/07/2022 Social Influencers of Health Screening 02/07/2022 Medicare Annual Wellness Visit 04/05/2023 04/05/2022 RSV Immunization Adult Patients (1 - 1-dose 75+ series) 12/19/2023 Depression Screening 03/03/2024 COVID-19 Vaccine (2024- season) 2024 04/21/2023, 03/11/2022, 06/11/2021, Additional history exists Influenza Vaccine (#1) 2024 , 12/25/2021, 12/07/2021, Additional history exists Colorectal Cancer Screening: Colonoscopy 05/24/2025 05/24/2020 Hypertension/CHF/CAD Annual BMP Blood Test 09/07/2025 09/07/2024, 08/10/2024, 06/14/2024, Additional history exists Cholesterol Screening (Lipid Panel) 07/06/2029 07/06/2024, 11/19/2023, 11/19/2023 DTaP,Tdap,and Td Vaccines (3 - Td or Tdap) 08/29/2030 08/29/2020, 01/29/2010 Osteoporosis Screening (Bone Density Screening) 01/21/2033 01/21/2023, 01/15/2021, 08/18/2018, Additional history exists Hepatitis C Screening Completed 06/04/2013 Pneumococcal Vaccine: 50+ Years Completed 07/15/2017, 04/25/2015 Breast Cancer Screening Discontinued 11/16/19, 11/11/2023, 11/07/2022, Additional history exists HIB Vaccines Aged Out No longer eligi ble based on patient's age to complete this topic HPV Vaccines Aged Out No longer eligi ble based on patient's age to complete this topic Hepatitis A Vaccines Aged Out No long er eligible based on patient's age to complete this topic Hepatitis B Vaccines Aged Out No long er eligible based on patient's age to complete this topic IPV Vaccines Aged Out No longer eligi ble based on patient's age to complete this topic MMR Vaccines Aged Out No longer eligi ble based on patient's age to complete this topic Meningococcal ACWY Vaccine Aged Out N o longer eligible based on patient's age to complete this topic Meningococcal B Vaccine Aged Out No l onger eligible based on patient's age to complete this topic RSV Immunization Patients Under 20 months Aged Out No longer eligible based on patient's age to complete this topic Varicella Vaccines Aged Out No longer eligible based on patient's age to complete this topic Procedures Procedure Name Priority Date/Time Associated Diagnosis Comments MG MAMMO DIGITAL SCREENING W RASHARD BILAT Routine 11/15/2024 9:41 AM EDT Encounter for screening mammogram for breast cancer CREATININE, URINE, 24H Routine 10/20/2024 8:46 AM EDT Hyperparathyroidism ([facility] V24) CALCIUM, URINE, 24H Routine 10/20/2024 8 :46 AM EDT Hyperparathyroidism ([facility] V24) CT ABDOMEN PELVIS WO CONTRAST STAT 09/07/2024 12:46 PM EDT LOVETT URINE CULTURE TUBE STAT 09/07/2024 10:13 AM EDT URINALYSIS WITH REFLEX MICROSCOPIC AND CULTURE STAT 09/07/2024 10:13 AM EDT CBC WITH AUTO DIFFERENTIAL STAT 09/07/2024 10:13 AM EDT URINALYSIS WITH REFLEX MICROSCOPIC AND CULTURE STAT 09/07/2024 10:13 AM EDT COMPREHENSIVE METABOLIC PANEL STAT 09/07/2024 10:13 AM EDT CBC AND DIFFERENTIAL STAT 09/07/2024 10:13 AM EDT CULTURE URINE STAT 09/07/2024 10:13 AM EDT LIPID PANEL WITH REFLEX TO DIRECT LDL Routine 07/06/2024 10:48 AM EDT Hyperlipidemia, unspecified hyperlipidemia type DXA BONE DENSITY STUDY 1+ SITS AXIAL SKEL Routine 01/21/2023 10:08 AM EST Other specified disorders of bone density and structure, unspecified site HM COLONOSCOPY Routine 05/24/2020 HEPATITIS C SCREENING Routine 06/04/2013 from Last 3 Months or Most Recently Relevant to Health Maintenance Results * MG Mammo Digital Screening w Rashard bilat (11/15/2024 9:41 AM EDT) Anatomical Region Laterality Modality Breast Bilateral Mammography 11/15/2024 10:3 9 AM EDT Impressions 11/15/2024 10:45 AM EDT No mammographic evidence of malignancy. No suspicious interval change. A negative mammogram in the presence of a clinically suspicious palpable abnormality does not preclude the possibility of malignancy or alter the indications for biopsy. ASSESSMENT: BI-RADS 1: NEGATIVE RECOMMENDATION(S): 1: Routine screening mammogram BILATERAL in 1 year. [facility] [address], [id number] -------- FINAL REPORT -------- Dictated By: Eric Greco Dictated Date: 11/15/2024 10:39 ET Assigned Physician: Eric Greco Reviewed and Electronically Signed By: Eric Greco Signed Date: 11/15/2024 10:45 ET Workstation ID: [id number] Transcribed By: Self Edit Transcribed Date: 11/15/2024 10:39 ET Narrative 11/15/2024 10:45 AM EDT EXAM: SCREENING MAMMOGRAPHY, BILATERAL HISTORY: SCREENING. Sister diagnosed with breast cancer age 55. COMPARISON: 11/11/23, 11/07/22, 11/02/21, 10/25/20 TECHNIQUE: Synthesized CC and MLO projections of each breast. Tomosynthesis of each breast in the CC and MLO projections. ADDITIONAL IMAGING: None Computer-aided detection was employed with the [employer] AI 3-D. TISSUE DENSITY: The breasts are almost entirely fatty. (BI-RADS Category A) FINDINGS: RIGHT BREAST: No suspicious mass. No suspicious calcification. No distortion. No additional suspicious right breast findings LEFT BREAST: No suspicious mass. No suspicious calcification. No distortion. No additional suspicious left breast findings Procedure Note Eric Greco MD - 11/15/2024 EXAM: SCREENING MAMMOGRAPHY, BILATERAL HISTORY: SCREENING. Sister diagnosed with breast cancer age 55. COMPARISON: 11/11/23, 11/07/22, 11/02/21, 10/25/20 TECHNIQUE: Synthesized CC and MLO projections of each breast.Tomosynthesis of each breast in the CC and MLO projections. ADDITIONAL IMAGING: None Computer-aided detection was employed with the [employer] AI 3-D. TISSUE DENSITY: The breasts are almost entirely fatty. (BI-RADS CategoryA) FINDINGS: RIGHT BREAST: No suspicious mass. No suspicious calcification. No distortion. Noadditional suspicious right breast findings LEFT BREAST: No suspicious mass. No suspicious calcification. No distortion. Noadditional suspicious left breast findings IMPRESSION: No mammographic evidence of malignancy. No suspicious interval change. A negative mammogram in the presence of a clinically suspicious palpableabnormality does not preclude the possibility of malignancy or alter theindications for biopsy. ASSESSMENT: BI-RADS 1: NEGATIVE RECOMMENDATION(S): 1: Routine screening mammogram BILATERAL in 1 year. [facility] location[facility] [address], [id number] -------- FINAL REPORT -------- Dictated By: Eric Greco Dictated Date: 11/15/2024 10:39 ET Assigned Physician: Eric Greco Reviewed and Electronically Signed By: Eric Greco Signed Date: 11/15/2024 10:45 ET Workstation ID: [id number] Transcribed By: Self Edit Transcribed Date: 11/15/2024 10:39 ET us Self Referral Sppl IMG BI PROCEDURES Final Resul t * Calcium, urine, 24H (10/20/2024 8:46 AM EDT) Calcium, Ur 18.0 mg/dL LAB CHEMISTRY METHOD 10/20/2024 11:09 AM EDT [facility] Calcium, 24H Urine 288 50 - 400 mg/24 hr LAB CHEMISTRY METHOD 10/20/2024 11:09 AM EDT [facility] Urine Volume 1,600 mL LAB CHEMISTRY METHOD 10/20/2024 11:[address] [facility] Collection Interval, Ur 24 hr LAB CHEMISTRY METHOD 10/20/2024 11:[address] [facility] Urine Urine specimen from urethra / Unknown Non-blood Collection / Unknown 10/20/2024 8:46 AM EDT 10/20/2024 8:46 AM EDT Dylon Martini MD LAB URINE ORDERABLES Final Resul t [facility] [address] [place] [address], * (ABNORMAL) Creatinine, urine, 24H (10/20/2024 8:46 AM EDT) Creatinine, Urine 44.0 mg/dL LAB CHEMISTRY METHOD 10/20/2024 11:03 AM EDT [facility] Creatinine, 24H Ur 704(L) 800 - 2,000 mg/24 Hr LAB CHEMISTRY METHOD 10/20/2024 11:[address] [facility] Urine Volume 1,600 mL LAB CHEMISTRY METHOD 10/20/2024 11:[address] [facility] Collection Interval, Ur 24 hr LAB CHEMISTRY METHOD 10/20/2024 11:[address] [facility] Urine Urine specimen from urethra / Unknown Non-blood Collection / Unknown 10/20/2024 8:46 AM EDT 10/20/2024 8:46 AM EDT Dylon Martini MD LAB URINE ORDERABLES Final Resul t [facility] [address] [place] [address], * CT Abdomen Pelvis wo Contrast (09/07/2024 12:46 PM EDT) Anatomical Region Laterality Modality Body Computed Tomogra phy 09/07/2024 1:29 PM EDT Impressions 09/07/2024 1:36 PM EDT No obstruction, free air, free fluid or focal inflammatory changes. Distal ileal and left-sided colonic diverticulosis without acute diverticulitis. -------- FINAL REPORT -------- Dictated By: Damon Olmos Dictated Date: 09/07/2024 13:29 ET Assigned Physician: Damon Olmos Reviewed and Electronically Signed By: Damon Olmos Signed Date: 09/07/2024 13:36 ET Workstation ID: [id number] Transcribed By: Self Edit Transcribed Date: 09/07/2024 13:29 ET Narrative 09/07/2024 1:36 PM EDT INDICATION: Pyelonephritis TECHNIQUE: CT scan of the abdomen and pelvis obtained without intravenous contrast. Oral contrast was not administered. Scanner: [employer] 64 slice VCT Dose reduction technique: ASIR (Adaptive statistical iterative reconstruction) and/or AEC (automated exposure control) Dose: total exam DLP 1169 mGY per cm COMPARISON: Compared to multiple prior studies most recent from June 12, 2011. FINDINGS: Right basilar parenchymal scarring with nodular component laterally, unchanged dating back to November 2007. Minimal scarring noted within the lingula. Bony structures are unremarkable for the patient's age. Liver, spleen, pancreas, adrenal glands and kidneys are within normal limits. No nephrolithiasis or hydronephrosis. No perinephric fluid collection or inflammatory changes. Status post cholecystectomy. Small amount of pneumobilia. Possible biliary enteric anastomosis. Stomach unremarkable postoperative changes noted distally. Small bowel loops are normal in course and caliber with tip extending into the right upper quadrant up into the roula hepatis. Terminal ileum unremarkable. A few small distal ileal diverticuli are noted. Multiple left-sided colonic diverticuli. No acute diverticulitis. No free air or free fluid. Urinary bladder normal. Status post hysterectomy. No adnexal masses. Abdominal aorta normal in course and caliber. Retroaortic left renal vein is a normal variant. No lymphadenopathy. Procedure Note Damon Olmos MD - 09/07/2024 INDICATION: Pyelonephritis TECHNIQUE: CT scan of the abdomen and pelvis obtained without intravenouscontrast. Oral contrast was not administered. Scanner: [employer] 64 slice VCT Dose reduction technique: ASIR (Adaptive statistical iterativereconstruction) and/or AEC (automated exposure control) Dose: total exam DLP 1169 mGY per cm COMPARISON: Compared to multiple prior studies most recent from June. FINDINGS: Right basilar parenchymal scarring with nodular component laterally,unchanged dating back to November 2007. Minimal scarring noted within thelingula. Bony structures are unremarkable for the patient's age. Liver, spleen, pancreas, adrenal glands and kidneys are within normallimits. No nephrolithiasis or hydronephrosis. No perinephric fluidcollection or inflammatory changes. Status post cholecystectomy. Smallamount of pneumobilia. Possible biliary enteric anastomosis. Stomach unremarkable postoperative changes noted distally. Small bowelloops are normal in course and caliber with tip extending into the rightupper quadrant up into the roula hepatis. Terminal ileum unremarkable. Afew small distal ileal diverticuli are noted. Multiple left-sided colonicdiverticuli. No acute diverticulitis. No free air or free fluid. Urinary bladder normal. Status post hysterectomy. No adnexal masses. Abdominal aorta normal in course and caliber. Retroaortic left renal veinis a normal variant. No lymphadenopathy. IMPRESSION: No obstruction, free air, free fluid or focal inflammatory changes. Distal ileal and left-sided colonic diverticulosis without acutediverticulitis. -------- FINAL REPORT -------- Dictated By: Damon Olmos Dictated Date: 09/07/2024 13:29 ET Assigned Physician: Damon Olmos Reviewed and Electronically Signed By: Damon Olmos Signed Date: 09/07/2024 13:36 ET Workstation ID: [id number] Transcribed By: Self Edit Transcribed Date: 09/07/2024 13:29 ET Rach MURGUIA IMG CT PROCEDURES Final Result * (ABNORMAL) Urinalysis with reflex microscopic and culture (09/07/2024 10:13 AM EDT) Pathologist [facility] Specific [place] Urine 1.011 1.003 - 1.030 LAB URINALYSIS - AUTOMATED METHOD 09/07/2024 10:[address] [facility] pH, Urine 6.5 5.0 - 8.0 pH LAB URINALYSIS - AUTOMATED METHOD 09/07/2024 10:[address] [facility] Leukocytes, Urine Large(A) Negative LAB URINALYSIS - AUTOMATED METHOD 09/07/2024 10:[address] [facility] Nitrite, Urine Negative Negative LAB URINALYSIS - AUTOMATED METHOD 09/07/2024 10:[address] [facility] Protein, Urine 30(A) <=Trace mg/dL LAB URINALYSIS - AUTOMATED METHOD 09/07/2024 10:[address] [facility] Glucose, Urine Negative Negative mg/dL LAB URINALYSIS - AUTOMATED METHOD 09/07/2024 10:[address] [facility] Ketones, Urine Negative Negative mg/dL LAB URINALYSIS - AUTOMATED METHOD 09/07/2024 10:[address] [facility] Urobilinogen , Urine 0.2 0.2 - 1.0 mg/dL LAB URINALYSIS - AUTOMATED METHOD 09/07/2024 10:[address] [facility] Bilirubin, Urine Negative Negative LAB URINALYSIS - AUTOMATED METHOD 09/07/2024 10:[address] [facility] Blood, Urine Small(A) Negative LAB URINALYSIS - AUTOMATED METHOD 09/07/2024 10:48 AM EDT [facility] RBC, Urine 21.6(H) 0 - 4 /HPF LAB URINALYSIS - AUTOMATED METHOD 09/07/2024 10:48 AM EDT [facility] WBC, Urine 1,864.1(H) 0 - 4 /HPF LAB URINALYSIS - AUTOMATED METHOD 09/07/2024 10:48 AM EDT [facility] Squamous Epithelial, Urine 23 0 - 60 /LPF LAB URINALYSIS - AUTOMATED METHOD 09/07/2024 10:48 AM EDT [facility] Bacteria, Urine Many(A) Negative /HPF LAB URINALYSIS - AUTOMATED METHOD 09/07/2024 10:48 AM EDT [facility] Hyaline Casts, Urine 7.0(H) 0 - 3 /LPF LAB URINALYSIS - AUTOMATED METHOD 09/07/2024 10:48 AM T [facility] Urine Urine specimen obtained by clean catch procedure / Unknown Non-blood Collection / Unknown 09/07/2024 10:13 AM EDT 09/07/2024 10:37 AM EDT us Yash Lua DO LAB URINE ORDERABLES Final Result Performing Organization Address [facility] Co de Phone Number [facility] [address] [place] [address], * Lovett urine culture tube (09/07/2024 10:13 AM EDT) Extra Tube Hold for add-ons. 09/07/2024 12:01 PM EDT [facility] Comment:Auto resulted. Urine Urine specimen obtained by clean catch procedure / Unknown Non-blood Collection / Unknown 09/07/2024 10:13 AM EDT 09/07/2024 10:37 AM EDT us Yash Lua DO LAB URINE ORDERABLES Final Result [facility] [address] [place] [address], * (ABNORMAL) CBC auto differential (09/07/2024 10:13 AM EDT) [facility] WBC 10.0 4.8 - 10.8 K/mcL LAB HEMETOLOGY METHOD 09/07/2024 10:43 AM EDT [facility] RBC 4.80 3.80 - 4.80 M/mcL LAB HEMETOLOGY METHOD 09/07/2024 10:43 AM EDT [facility] Hemoglobin 14.0 11.5 - 16.0 g/dL LAB HEMETOLOGY METHOD 09/07/2024 10:43 AM EDT [facility] Hematocrit 44.4 35.0 - 47.0 % LAB HEMETOLOGY METHOD 09/07/2024 10:43 AM EDT [facility] MCV 92.7 79.0 - 98.0 FL LAB HEMETOLOGY METHOD 09/07/2024 10:43 AM EDT [facility] MCH 29.2 27.0 - 32.0 pcg LAB HEMETOLOGY METHOD [facility]07[facility] MCHC 31.5(L) 32.0 - 37.0 g/dL LAB HEMETOLOGY METHOD 09/07/2024 10:43 AM EDT [facility] RDW 13.0 11.0 - 15.0 % LAB HEMETOLOGY METHOD 09/07/2024 10:43 AM EDT [facility] Platelets 279 130 - 400 K/mcL LAB HEMETOLOGY METHOD 09/07/2024 10:43 AM EDT [facility] MPV 11.0 7.0 - 11.0 FL LAB HEMETOLOGY METHOD 09/07/2024 10:43 AM EDT [facility] NRBC 0.0 <1.0 % LAB HEMETOLOGY METHOD 09/07/2024 10:[address] [facility] NRBC Absolute 0.00 <0.10 K/mcL LAB HEMETOLOGY METHOD 09/07/2024 10:[address] [facility] Neutrophils Relative 64.7 % LAB HEMETOLOGY METHOD 09/07/2024 10:[address] [facility] Lymphocytes Relative 25.7 % LAB HEMETOLOGY METHOD 09/07/2024 10:[address] [facility] Monocytes Relative 7.5 % LAB HEMETOLOGY METHOD 09/07/2024 10:[address] [facility] Eosinophils Relative 1.5 % LAB HEMETOLOGY METHOD 09/07/2024 10:[address] [facility] Basophils Relative 0.4 % LAB HEMETOLOGY METHOD 09/07/2024 10:[address] [facility] Immature Granulocytes Relative 0.2 % LAB HEMETOLOGY METHOD 09/07/2024 10:[address] [facility] Neutrophils Absolute 6.44 1.50 - 7.00 K/mcL LAB HEMETOLOGY METHOD 09/07/2024 10:[address] [facility] Lymphocytes Absolute 2.56 1.00 - 5.00 K/mcL LAB HEMETOLOGY METHOD 09/07/2024 10:[address] [facility] Monocytes Absolute 0.75 0.20 - 1.00 K/mcL LAB HEMETOLOGY METHOD 09/07/2024 10:[address] [facility] Eosinophils Absolute 0.15 0.00 - 0.50 K/mcL LAB HEMETOLOGY METHOD 09/07/2024 10:[address] [facility] Basophils Absolute 0.04 0.00 - 0.20 K/mcL LAB HEMETOLOGY METHOD 09/07/2024 10:[address] [facility] Immature Granulocytes Absolute 0.02 0.00 - 0.03 K/mcL LAB HEMETOLOGY METHOD 09/07/2024 10:43 AM EDT [facility] Blood Venous blood specimen / Unknown Venipuncture / Unknown 09/07/2024 10:13 AM EDT 09/07/2024 10:37 AM EDT us Yash Lua DO LAB BLOOD ORDERABLES Final Result [facility] [address] [place] [address], * (ABNORMAL) Culture urine (09/07/2024 10:13 AM EDT) Culture, Urine >100,000 CFU/mL Proteus mirabilis(A ) JD 09/09/2024 12:10 PM EDT [facility] Comment: This is an edited result. Previous organism was Gram negative bacilli on 09/08/2024 at 0803 EDT. Urine Urine specimen obtained by clean catch procedure / Unknown Non-blood Collection / Unknown 09/07/2024 10:13 AM EDT 09/07/2024 10:48 AM EDT Narrative Organism Antibiotic Method Susceptibility Proteus mirabilis Amoxicillin/Clavulanate JD <=2 ug/ml: Susceptible Proteus mirabilis Ampicillin/Sulbactam JD <=2 ug/ml: Susceptible Proteus mirabilis Piperacillin/Tazobactam JD <=4 ug/ml: Susceptible Proteus mirabilis Cefazolin (Urine) JD 4 ug/ml: Susceptible Proteus mirabilis Cefoxitin JD <=4 ug/ml: Susceptible Proteus mirabilis Ceftazidime JD <=0.5 ug/ml: Susceptible Proteus mirabilis Ceftriaxone JD <=0.25 ug/ml: Susceptible Proteus mirabilis Cefepime JD <=0.12 ug/ml: Susceptible Proteus mirabilis Meropenem JD <=0.25 ug/ml: Susceptible Proteus mirabilis Amikacin JD 2 ug/ml: Susceptible Proteus mirabilis Gentamicin JD <=1 ug/ml: Susceptible Proteus mirabilis Ciprofloxacin JD <=0.06 ug/ml: Susceptible Proteus mirabilis Levofloxacin JD <=0.12 ug/ml: Susceptible Proteus mirabilis Nitrofurantoin JD 128 ug/ml: Resistant Proteus mirabilis Trimethoprim/Sulfamethoxazole JD <=20 ug/ml: Susceptible Yash Lua DO LAB MICROBIOLOGY - GENERAL ORDERABLES Final Result [facility] [address] [place] [address], [place] [phone] * (ABNORMAL) Comprehensive metabolic panel (09/07/2024 10:13 AM EDT) Sodium 139 133 - 145 mmol/L LAB CHEMISTRY METHOD 09/07/2024 11:[address] [facility] Potassium 4.4 3.5 - 5.5 mmol/L LAB CHEMISTRY METHOD 09/07/2024 11:[address] [facility] Chloride 109 96 - 110 mmol/L LAB CHEMISTRY METHOD 09/07/2024 11:[address] [facility] CO2 28 21 - 32 mmol/L LAB CHEMISTRY METHOD 09/07/2024 11:[address] [facility] Anion Gap 2(L) 3 - 11 LAB CHEMISTRY METHOD 09/07/2024 11:[address] [facility] Glucose 101(H) 70 - 100 mg/dL LAB CHEMISTRY METHOD 09/07/2024 11:[address] [facility] BUN 16 5 - 25 mg/dL LAB CHEMISTRY METHOD 09/07/2024 11:[address] [facility] Creatinine 0.71 0.50 - 1.10 mg/dL LAB CHEMISTRY METHOD 09/07/2024 11:[address] [facility] eGFR 89 >=60 mL/min/1. 73m2 LAB CHEMISTRY METHOD 09/07/2024 11:[address] [facility] Comment:Calculation based on the Chronic Kidney Disease Epidemiology Collaboration (CKD-EPI) equation refit without adjustment for race. BUN/Creatinine Ratio 22.5 LAB CHEMISTRY METHOD 09/07/2024 11:[address] [facility] Calcium 10.8(H) 8.5 - 10.5 mg/dL LAB CHEMISTRY METHOD 09/07/2024 11:[address] [facility] AST (SGOT) 12 10 - 42 unit/L LAB CHEMISTRY METHOD 09/07/2024 11:[address] [facility] ALT (SGPT) 25 10 - 60 unit/L LAB CHEMISTRY METHOD 09/07/2024 11:[address] [facility] Alkaline Phosphatase 141(H) 42 - 121 unit/L LAB CHEMISTRY METHOD 09/07/2024 11:[address] [facility] Total Protein 7.5 6.0 - 8.0 g/dL LAB CHEMISTRY METHOD 09/07/2024 11:[address] [facility] Albumin 3.8 3.2 - 5.0 g/dL LAB CHEMISTRY METHOD 09/07/2024 11:[address] [facility] Total Bilirubin 0.5 0.0 - 1.4 mg/dL LAB CHEMISTRY METHOD 09/07/2024 11:[address] [facility] Blood Venous blood specimen / Unknown Venipuncture / Unknown 09/07/2024 10:13 AM EDT 09/07/2024 10:37 AM EDT us Yash Lua DO LAB BLOOD ORDERABLES Final Result [facility] [address] [place] [address], * (ABNORMAL) Lipid panel with reflex to direct LDL (07/06/2024 10:48 AM EDT) Cholesterol 242(H) 0 - 200 mg/dL LAB CHEMISTRY METHOD 07/06/2024 3:32 PM EDT [facility] Triglycerides 187(H) 0 - 150 mg/dL LAB CHEMISTRY METHOD 07/06/2024 3:32 PM EDT [facility] HDL 48 >=40 mg/dL LAB CHEMISTRY METHOD 07/06/2024 3:32 PM EDT [facility] LDL Calculated 157(H) 0 - 100 mg/dL LAB CHEMISTRY METHOD 07/06/2024 3:32 PM EDT [facility] VLDL Cholesterol Art 37.4 mg/dL LAB CHEMISTRY METHOD 07/06/2024 3:32 PM EDT [facility] Non HDL Chol. (LDL+VLDL) 194(H) <145 mg/dL LAB CHEMISTRY METHOD 07/06/2024 3:32 PM EDT [facility] Chol/HDL Ratio 5.0(H) 0.0 - 4.4 LAB CHEMISTRY METHOD 07/06/2024 3:32 PM EDT [facility] Blood Venous blood specimen / Unknown Venipuncture / Unknown 07/06/2024 10:48 AM EDT 07/06/2024 10:48 AM EDT Rosales MURGUIA LAB BLOOD ORDERABLES Fi nal Result [facility] [address] [place] [address], * DXA BONE DENSITY STUDY 1+ SITS AXIAL SKEL (01/21/2023 10:08 AM EST) Anatomical Region Laterality Modality Bone Densitometr y 10/21/2022 11:0 4 AM EDT Narrative 01/21/2023 8:05 PM EST BONE DENSITY SCAN (DEXA): FINDINGS: Lumbar Spine T-score is -1.8. (SD relative to 20-29 y/o adult) Z-score is 0.6. (SD relative to age matched peers) This is considered osteopenia by WHO criteria. Left Hip T-score is -2.1. Z-score is -0.2. This is considered osteopenia by WHO criteria. Left Forearm T-score is -1.6. Z-score is 0.9. This is considered osteopenia by WHO criteria. Comparison exam(s): 01/15/2021 and 08/18/2018. 5.4% loss of lumbar spine bone mineral density and 6.2% loss of left hip bone mineral density compared with 01/15/2021, both statistically significant at 95% confidence level. 6.4% loss of left forearm bone mineral density compared with 08/18/2018 which is statistically significant at the 95% confidence level. IMPRESSION: IMPRESSION: Osteopenia by WHO criteria. This patient has a 7.1% risk of major osteoporotic fracture and a 1.7% risk of hip fracture over the next 10 years. (World Health Organization Fracture Risk Assessment) [facility] Department of Internal Medicine recommends using National Osteoporosis Foundation (NOF) guidelines in treatment decisions related to osteoporosis. NOF guidelines suggest considering treatment for postmenopausal women and men aged 50 or older presenting with the following: History of hip or vertebral fracture. T-score = -2.5 (DXA) at the femoral neck, total hip, or spine, after appropriate evaluation to exclude secondary causes. Low bone mass (T-score between -1.0 and -2.5 at the femoral neck or spine) AND a 10-year probability of a hip fracture = 3% OR a 10-year probability of a major osteoporosis-related fracture = 20% based on the [place]-adapted WHO algorithm Please note that all treatment decisions require clinical judgment and consideration of individual patient factors, including patient preferences, co-morbidities, previous drug use, risk factors not captured in the FRAX model (e.g., frailty, falls, vitamin D deficiency, increased bone turnover, interval significant decline in bone density) and possible under- or over-estimation of fracture risk by FRAX. Optional alternative screening schedule based on ronaldo Hopper., [facility] March 21, 2011 for patients with osteopenia (based on hip BMD T-score) is as follows: * advanced osteopenia (T scores -2.00 to -2.49), BMD testing every year * moderate osteopenia (T scores -1.50 to -1.99), BMD testing every 5 years mild osteopenia or normal BMD (T scores -1.50 and higher), BMD testing every 15 years Procedure Note Rosa Workman MD - 04/08/2023 BONE DENSITY SCAN (DEXA): FINDINGS: Lumbar Spine T-score is -1.8. (SD relative to 20-29 y/o adult) Z-score is 0.6. (SD relative to age matched peers) This is considered osteopenia by WHO criteria. Left Hip T-score is -2.1. Z-score is -0.2. This is considered osteopenia by WHO criteria. Left Forearm T-score is -1.6. Z-score is 0.9. This is considered osteopenia by WHO criteria. Comparison exam(s): 01/15/2021 and 08/18/2018. 5.4% loss of lumbar spinebone mineral density and 6.2% loss of left hip bone mineral density compared with 01/15/2021,both statistically significant at 95% confidence level. 6.4% loss of left forearm bonemineral density compared with 08/18/2018 which is statistically significant at the 95% confidencelevel. IMPRESSION: IMPRESSION: Osteopenia by WHO criteria. This patient has a 7.1% risk of majorosteoporotic fracture and a 1.7% risk of hip fracture over the next 10 years. (World HealthOrganization Fracture Risk Assessment) [facility] Department of Internal Medicine recommendsusing National Osteoporosis Foundation (NOF) guidelines in treatment decisions related toosteoporosis. NOF guidelines suggest considering treatment for postmenopausal women and menaged 50 or older presenting with the following: History of hip or vertebral fracture. T-score = -2.5 (DXA) at the femoral neck, total hip, or spine, afterappropriate evaluation to exclude secondary causes. Low bone mass (T-score between -1.0 and -2.5 at the femoral neck or spine)AND a 10-year probability of a hip fracture = 3% OR a 10-year probability of a majorosteoporosis-related fracture = 20% based on the [place]-adapted WHO algorithm Please note that all treatment decisions require clinical judgment andconsideration of individual patient factors, including patient preferences, co- morbidities,previous drug use, risk factors not captured in the FRAX model (e.g., frailty, falls, vitaminD deficiency, increased bone turnover, interval significant decline in bone density) andpossible under- or over-estimation of fracture risk by FRAX. Optional alternative screening schedule based on raquel Hopper al., NEJMJanuary 2011 for patients with osteopenia (based on hip BMD T-score) is as follows: * advanced osteopenia (T scores -2.00 to -2.49), BMD testing every year * moderate osteopenia (T scores -1.50 to -1.99), BMD testing every 5years mild osteopenia or normal BMD (T scores -1.50 and higher), BMD testingevery 15 years Dylon Martini MD IMG DXA PROCEDURES Final Result * Colonoscopy (05/24/2020) [facility] Colonoscopy No Interpretation , Abstracted Anatomical Region Laterality Modality Other Historical Provider HEALTH MAINTENANCE Final Result * Hepatitis C Screening (06/04/2013) [facility] Hepatitis C Screening Abstracted Historical Provider HEALTH MAINTENANCE Final Result from Last 3 Months or Most Recently Relevant to Health Maintenance Insurance [facility] MEDICARE Member Subscriber Plan / Payer (Ef fective 2023-Present) Name:Kelly Stewart Relation to Subscriber:Self Name:Kelly Truong Payer ID:[id number] Group ID:[id number] Type:Not on file Address: [place] [address] [address] [id number] Care Teams 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
--- OUTSIDE RECORDS SUMMARY | 2024-11-24 07:17 | XMS_ITS | Clinical Summary ---
Author Organization [facility] Address [address] [place] [address] Care Team Providers Care Mechanical Assembler Name Role Phone Latanya Khan MD Primary Care Provider [phone] Allergies Active Allergy Reactions Criticality Noted Date Comments Cephalosporins 06/25/2018 Iodinated Contrast Media 06/25/2018 Penicillins 06/25/2018 Vancomycin 06/25/2018 Medications Medication Sig Dispensed Refills Start Date End Date Status levothyroxine (SYNTHROID, LEVOXYL) tablet 100 mcg TK 1 T PO D 0 05/25/2018 Active Cholecalciferol (VITAMIN D) 2000 units CAPS TK 1 C PO D 3 06/18/2018 Active pravastatin (PRAVACHOL) tablet 40 mg TK 1 T PO D 0 05/25/2018 Active amLODIPine (NORVASC) tablet 10 mg Take 10 mg by mouth daily. 0 Active tiZANidine (ZANAFLEX) 2 MG tablet Take 2 mg by mouth. 0 09/10/2018 Active Diclofenac Sodium 1 % GEL topical Apply to area on knees with pain TID for 10 days 0 12/10/2018 Active Active Problems Problem Noted Date Diagnosed Date Arthritis of right glenohumeral joint 06/25/2018 Family History Medical History Relation Name Comments Cancer Father Cancer Mother Relation Name Status Comments Father Mother Social History Tobacco Use Types Packs/Day Years Used Date Smoking Tobacco: Never Assessed Sex and Gender Information Value Date Recorded Sex Assigned at Not on file Gender Identity Not on file Sexual Orientation Not on file Last Filed Vital Signs Vital Sign Reading Time Taken Comments Blood Pressure - - Pulse - - Temperature - - Respiratory Rate - - Oxygen Saturation - - Inhaled Oxygen Concentration - - Weight 83.9 kg (185 lb) 09/24/2018 10:25 AM EDT Height 160 cm (5' 3 ) 06/25/2018 1:03 PM EDT Body Mass Index 32.77 06/25/2018 1:03 PM EDT Plan of Treatment Health Maintenance Due Date Last Done Comments Hepatitis C Screening 1950 COVID-19 Vaccine (#1) 06/18/1951 Depression Screening 1960 BMI Counseling 1966 Preventative Health Evaluation 1966 Colon Cancer Screening (Colonoscopy) 1993 Shingrix-Zoster Vaccine (1 of 2) 1998 Fall Risk Assessment 2013 Osteoporosis Screening (DEXA Scan) 2013 DTap / Tdap / Td (2 - Td or Tdap) 01/30/2020 01/29/2010 RSV Adult > 60+ Yrs or (1 - 1-dose 75+ series) 12/19/2023 Influenza Vaccine (#1) 2024 9, 12/10/2017, 12/26/2016, Additional history exists Pneumococcal Vaccine Completed 07/15/2017, 04/25/19 16 Hepatitis B Vaccines Aged Out No long er eligible based on patient's age to complete this topic RSV Ped < 20 months Aged Out No longe r eligible based on patient's age to complete this topic Care Teams Mechanical Assembler Relationship Specialty Start Date End Date Latanya Khan MD PCP - General Internal Medicine 06/09/18
--- NOTE | 2024-11-24 07:20 | MHC.OFFVIS ---
Vital Signs 11/24/24 07:21 Height 5 ft 3 in Weight 192 lb BMI 34.0 BP 142/80 H Blood Pressure Location Rt brachial Position Sitting Pulse 69 Pulse Source Pulse Oximeter Pulse Oximetry (%) 97 Oxygen Delivery Method Room Air Intake Visit Reasons: 6mo F/U Intake Note: Follow up Dysphonia, spasmodic In School Suspension Coordinator Required: Yes In School Suspension Coordinator Name: Daughter to interpret Accompanied by: Daughter Allergies cephalexin Allergy (Unknown, Verified 11/24/24 07:21) Rash nitrofurantoin Allergy (Unknown, Verified 11/24/24 07:21) Rash penicillin V Allergy (Unknown, Verified 11/24/24 07:21) Rash vancomycin Allergy (Unknown, Verified 11/24/24 07:21) Rash IVP dye(iodine containing) Allergy (Unknown, Uncoded 05/24/24 07:36) Rash Medication List - Last Reconciled 11/24/24 by Tiffani Camargo MD amlodipine 5 mg PO DAILY cholecalciferol (vitamin D3) 50 mcg PO DAILY diclofenac sodium 1% topical fluticasone propionate 50 mcg/actuation 1 spray intranasal DAILY levothyroxine 100 mcg PO DAILY pravastatin 40 mg PO BEDTIME propranolol 10 mg PO BID HPI Comments Details: 73 y/o female patient presents with her daughter for follow up of laryngeal tremor. she was not able to see [facility].waiting for an appointment. her daughter feels the voice is worse. Home sleep test was normal Pt's daughter helped for hx and interpretation.She did not notice any improvement with propranolol 10mg bid she is fine talking but when she sings - she loses her voice like dysphonia. she feels like her vocal cords tightens up. Pt tried propranolol 60 ER daily, but it caused her GI upset, nausea, vomiting and diarrhea. History from initial visit 2023- Pt reports she has hx of thyroid nodule. She was evaluated by ENT and referred to r/o neurological condition. Denies difficulty swallowing, She can cough when she talks long. Pt was recommended to use flonase for post nasal drip. Pt also referred to speech therapy. Denies family hx of tremor. Denies slowing, or stiffness. Had knee pain but no gait changes. She sleeps ok, no REM behavior. Jose Luis memory changes. Denies constipation. [facility] Medical History Hypersomnia Snoring Dysphonia, spasmodic Surgical History S/P emergency Family History Family/Other Cancer Family/Other Asthma Diabetes Heart murmur Social History Alcohol intake: never Patient Tobacco Use Status: Never used Tobacco Physical Exam Vital Signs: Last Vital Signs Pulse 69 11/24/24 07:21 BP 142/80 H 11/24/24 07:21 Pulse Ox 97 11/24/24 07:21 Oxygen Delivery Method Room Air 11/24/24 07:21 BMI result Body Mass Index 34.0 Const Other: Mild jaw tremor. No tongue tremor General: cooperative and healthy appearing Nutritional Appearance: obese Orientation/consciousness: patient oriented x3 Limitations: language barrier Neck Neck: Yes full ROM and Yes supple Resp Effort & Inspection: normal respiratory effort and able to speak in complete sentences Neuro Other: spasmodic dysphonia General: patient oriented x3 Cranial nerves: Yes CN's II-XII intact bilaterally Motor exam (neuro): 5/5 motor strength present throughout, Pronator motor function not present and no tremor noted Psych Appearance: grossly normal Mental Status: mental status grossly normal Speech and movement: Other speech and movement exam findings present (Psych) (voice tremor) Attitude: cooperative Assessment & Plan Assessment & Plan (1) Voice hoarseness: Code(s): R49.0 - Dysphonia Category: Medical (2) Voice tremor: Code(s): R49.8 - Other voice and resonance disorders Category: Medical (3) Dysphonia, 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 Home sleep test- reviewed will refer to CT ENT for evaluation and treatment with botox Monitor her blood pressure. Continue speech exercises Orders: Referrals Ear/Nose/Throat Referral J38.3 - Other diseases of vocal cords Coding Level of Care Code Est Pt Level 4 (28022) Diagnoses Voice hoarseness R49.0 Voice tremor R49.8 Dysphonia, spasmodic J38.3
[2024-11-24 07:21] VITALS: BP 142/80; PULSE 69; O2SAT 97; BMI 34.0
== END 2024-11-24 08:06 | disposition home or self-care (01) ==
LOC: HO.HSMS 07:15
PROVIDERS: PCP Internal Medicine; Visit Provider Psychiatry & Neurology Neurology
DX: R49.0 Dysphonia (principal); R49.8 Other voice and resonance disorders; J38.3 Other diseases of vocal cords
CPT/HCPCS: 99214

== ENCOUNTER → 2024-11-24 07:14 | Outpatient (BNVA) | payer OTHER, SELFPAY | PROVIDERS: PCP Internal Medicine; Visit Provider Psychiatry & Neurology Neurology | DX: R49.0 Dysphonia (principal); R49.8 Other voice and resonance disorders; J38.3 Other diseases of vocal cords | CPT/HCPCS: 99212 ==